=== PATIENT | female | born 1995 | race African-American/Black ===

== ENCOUNTER 2023-05-06 13:57 | Emergency (ER) | payer OTHER ==
[~2023-05-06] VITALS: Ht 167.6 cm; Wt 113.4 kg
[2023-05-06 14:04] VITALS: O2SAT 99
[2023-05-06] MEDS ORDERED: IBUPROFEN600 MG PO (14:38)
[2023-05-06] MEDS ORDERED: FLONASE ALLERG9.9 ML INH (14:38)
[2023-05-06] MEDS ORDERED: BENZONATATE100 MG PO (14:38)
[2023-05-06] MEDS ORDERED: ACYCLOVIR800 MG PO (14:38)
[2023-05-06] MEDS ORDERED: CLARITIN-D 241 EACH PO (14:38)
[2023-05-06] MEDS ORDERED: MUCINEX DM ER1 EAC1 PO (14:38)
[2023-05-07] MEDS ORDERED: FLONASE ALLERG9.9 ML INH (15:40)
[2023-05-07] MEDS ORDERED: BENZONATATE100 MG PO (15:40)
[2023-05-07] MEDS ORDERED: IBUPROFEN200 MG PO (15:40)
[2023-05-07] MEDS ORDERED: ACYCLOVIR800 MG PO (15:40)
[2023-05-07] MEDS ORDERED: MUCINEX DM ER1 EAC1 PO (15:40)
[2023-05-07] MEDS ORDERED: CLARITIN-D 241 EACH PO (15:40)
== END 2023-05-06 14:56 | disposition home or self-care (01) ==
LOC: FSED 14:01
DX: R05.9 Cough, unspecified (principal); J06.9 Acute upper respiratory infection, unspecified; B00.9 Herpesviral infection, unspecified; Z11.52 Encounter for screening for COVID-19
CPT/HCPCS: 0223U; 83518; 87400; 99282